=== PATIENT | female | born 1980 | race Caucasian/White ===

== ENCOUNTER 2018-05-27 03:30 | Emergency (ER) | payer MEDICAID ==
[~2018-05-27] VITALS: Ht 172.7 cm; Wt 104.3 kg
[2018-05-27 03:35] VITALS: BP 128/90
[2018-05-27] MEDS: FAMOTIDINE 20 MG TAB PO ONE (05:07)
[2018-05-27] MEDS: ALUMINUM HYD/MAG/SIMETHICONE 30 ML, DICYCLOMINE HCL LIQUID 20 MG, LIDOCAINE VISCOUS 2% ... PO ONE ×3 (05:08)
[2018-05-27] MEDS: METOCLOPRAMIDE 10 MG/2 ML INJ VIAL IM ONE (05:08)
[2018-05-27] MEDS: diphenhydrAMINE 50 MG/ML VIAL IM ONE (05:09)
[2018-05-27 05:46] VITALS: BP 124/86
== END 2018-05-27 05:46 | disposition home or self-care (01) ==
LOC: MED 03:30
DX: R10.13 Epigastric pain (principal)
CPT/HCPCS: 81002; 81025; 96372; 99284; J1200; J2765